=== PATIENT | female | born 1935 | race Caucasian/White ===

== ENCOUNTER 2020-01-03 13:48 | Inpatient (IN) ==
[2020-01-03] MEDS ORDERED: Acetaminophen 325 MG TABLET PO ONE (19:26)
[2020-01-03] MEDS: Simethicone 80 MG TAB.CHEW PO PRN (20:01)
[2020-01-03] MEDS: Erythromycin OPTH Oint LEFT EYE SCH (20:02)
[2020-01-04 07:36] LABS: Basophils % 0.5 %; Eosinophils # 0.1 K/mcL (0.0-0.6); Eosinophils % 1.1 %; Hematocrit 31.8 % (35.3-44.9); Hemoglobin 11.3 g/dL (11.5-15.4); Immature Granulocytes % 1.1 % (0-4); Lymphocytes # 1.4 K/mcL (0.6-4.6); Lymphocytes % 17.1 %; Mean Corpuscular HGB Conc 35.5 g/dL (31.6-35.5); Mean Corpuscular Hemoglobin 32.1 pg (28.0-33.3); Mean Corpuscular Volume 90.3 fL (83.0-100.0); Mean Platelet Volume 8.5 fL (9.4-12.4); Monocytes # 0.8 K/mcL (0.0-1.3); Monocytes % 10.4 %; Neutrophils # 5.5 K/mcL (1.6-8.9); Platelet Count 464 K/mcL (140-400); Red Blood Count 3.52 M/mcL (3.82-4.97); Red Cell Distribution Width 13.1 % (11.5-14.5); Segmented Neutrophils % 69.8 %; White Blood Count 7.9 K/mcL (4.3-11.1)
[2020-01-04 07:54] LABS: BUN/Creatinine Ratio 14 (6-26); Blood Urea Nitrogen 6 mg/dL (8-23); Carbon Dioxide 29 mEq/L (23-29); Chloride 93 mEq/L (98-107); Glucose 100 mg/dL (70-105); Osmolality,Calculated 262 (280-300); Potassium 3.3 mEq/L (3.5-5.1); Sodium 127 mEq/L (136-145); eGFR For African Americans > 60 (> 60); eGFR For Non-African Americans > 60 (> 60)
[2020-01-04] MEDS: Biotin 5,000 MCG SL SCH (08:02)
[2020-01-04] MEDS: Erythromycin OPTH Oint LEFT EYE SCH ×3 (08:02→20:09)
[2020-01-04] MEDS: B12 PO SCH (08:02)
[2020-01-04] MEDS: Multivit/Ca/Min/Fe/FA 1 TAB TABLET PO SCH (08:02)
[2020-01-04] MEDS: polyethylene glycoL 3350 17 GM POWD.PACK PO SCH (08:02)
[2020-01-04] MEDS: B6 PO SCH (08:02)
[2020-01-04] MEDS: LEVOMEFOLATE CALCIUM PO SCH (08:02)
[2020-01-04] MEDS: FERROUS SULFATE PO SCH (08:03)
[2020-01-04] MEDS: [UNRECOGNIZED DRUG - OTHER] PO SCH (08:03)
[2020-01-04] MEDS: VIT C PO SCH (08:03)
[2020-01-04] MEDS: Simethicone 80 MG TAB.CHEW PO PRN ×3 (08:05→20:08)
[2020-01-04] MEDS: Sennosides/Docusate Sodium TABLET PO PRN (11:52)
[2020-01-04] MEDS: Bisacodyl 10 MG RECTAL SUPPOSITORY RC PRN (11:52)
[2020-01-04] MEDS: Acetaminophen 325 MG TABLET PO PRN (17:06)
[2020-01-05] MEDS: Acetaminophen 325 MG TABLET PO PRN ×3 (00:55→20:30)
[2020-01-05 05:25] LABS: BUN/Creatinine Ratio 16 (6-26); Blood Urea Nitrogen 6 mg/dL (8-23); Calcium 8.2 mg/dL (8.6-10.3); Carbon Dioxide 27 mEq/L (23-29); Chloride 97 mEq/L (98-107); Glucose 92 mg/dL (70-105); Osmolality,Calculated 263 (280-300); Potassium 4.1 mEq/L (3.5-5.1); Sodium 128 mEq/L (136-145); eGFR For African Americans > 60 (> 60); eGFR For Non-African Americans > 60 (> 60)
[2020-01-05] MEDS: polyethylene glycoL 3350 17 GM POWD.PACK PO SCH (10:07)
[2020-01-05] MEDS: Simethicone 80 MG TAB.CHEW PO PRN (10:08)
[2020-01-05] MEDS: Multivit/Ca/Min/Fe/FA 1 TAB TABLET PO SCH (10:08)
[2020-01-05] MEDS: B6 PO SCH (10:09)
[2020-01-05] MEDS: Erythromycin OPTH Oint LEFT EYE SCH ×2 (10:09→10:26)
[2020-01-05] MEDS: LEVOMEFOLATE CALCIUM PO SCH (10:09)
[2020-01-05] MEDS: [UNRECOGNIZED DRUG - OTHER] PO SCH (10:09)
[2020-01-05] MEDS: FERROUS SULFATE PO SCH (10:09)
[2020-01-05] MEDS: VIT C PO SCH (10:09)
[2020-01-05] MEDS: Biotin 5,000 MCG SL SCH (10:09)
[2020-01-05] MEDS: B12 PO SCH (10:09)
[2020-01-06] MEDS: Acetaminophen 325 MG TABLET PO PRN ×2 (06:06→20:31)
[2020-01-06 07:46] LABS: BUN/Creatinine Ratio 17 (6-26); Blood Urea Nitrogen 8 mg/dL (8-23); Carbon Dioxide 26 mEq/L (23-29); Chloride 96 mEq/L (98-107); Glucose 118 mg/dL (70-105); Osmolality,Calculated 267 (280-300); Potassium 3.7 mEq/L (3.5-5.1); Sodium 129 mEq/L (136-145); eGFR For African Americans > 60 (> 60); eGFR For Non-African Americans > 60 (> 60)
[2020-01-06] MEDS: Aspirin Enteric Coated 81 MG Tablet PO SCH (08:25)
[2020-01-06] MEDS: Multivit/Ca/Min/Fe/FA 1 TAB TABLET PO SCH (08:25)
[2020-01-06] MEDS: polyethylene glycoL 3350 17 GM POWD.PACK PO SCH (08:26)
[2020-01-06] MEDS: VIT C PO SCH (08:27)
[2020-01-06] MEDS: FERROUS SULFATE PO SCH (08:27)
[2020-01-06] MEDS: Biotin 5,000 MCG SL SCH (08:27)
[2020-01-06] MEDS: B6 PO SCH (08:27)
[2020-01-06] MEDS: B12 PO SCH (08:27)
[2020-01-06] MEDS: [UNRECOGNIZED DRUG - OTHER] PO SCH (08:27)
[2020-01-06] MEDS: LEVOMEFOLATE CALCIUM PO SCH (08:27)
[2020-01-07] MEDS: Acetaminophen 325 MG TABLET PO PRN (05:54)
[2020-01-07 06:28] LABS: Hematocrit 34.3 % (35.3-44.9); Hemoglobin 11.9 g/dL (11.5-15.4); Mean Corpuscular HGB Conc 34.7 g/dL (31.6-35.5); Mean Corpuscular Hemoglobin 32.2 pg (28.0-33.3); Mean Corpuscular Volume 92.7 fL (83.0-100.0); Mean Platelet Volume 8.4 fL (9.4-12.4); Platelet Count 475 K/mcL (140-400); Red Cell Distribution Width 13.8 % (11.5-14.5); White Blood Count 10.3 K/mcL (4.3-11.1)
[2020-01-07 06:49] LABS: BUN/Creatinine Ratio 11 (6-26); Blood Urea Nitrogen 5 mg/dL (8-23); Calcium 8.4 mg/dL (8.6-10.3); Chloride 93 mEq/L (98-107); Glucose 95 mg/dL (70-105); Osmolality,Calculated 267 (280-300); Potassium 3.6 mEq/L (3.5-5.1); Sodium 130 mEq/L (136-145); eGFR For African Americans > 60 (> 60); eGFR For Non-African Americans > 60 (> 60)
[2020-01-07 07:19] LABS: Carbon Dioxide 29 mEq/L (23-29)
[2020-01-07] MEDS: B12 PO SCH (08:12)
[2020-01-07] MEDS: Biotin 5,000 MCG SL SCH (08:12)
[2020-01-07] MEDS: Aspirin Enteric Coated 81 MG Tablet PO SCH (08:12)
[2020-01-07] MEDS: B6 PO SCH (08:12)
[2020-01-07] MEDS: LEVOMEFOLATE CALCIUM PO SCH (08:12)
[2020-01-07] MEDS: Multivit/Ca/Min/Fe/FA 1 TAB TABLET PO SCH (08:12)
[2020-01-07] MEDS: polyethylene glycoL 3350 17 GM POWD.PACK PO SCH (08:13)
[2020-01-07] MEDS: [UNRECOGNIZED DRUG - OTHER] PO SCH (08:14)
[2020-01-07] MEDS: FERROUS SULFATE PO SCH (08:14)
[2020-01-07] MEDS: VIT C PO SCH (08:14)
[2020-01-08] MEDS: Acetaminophen 325 MG TABLET PO PRN ×2 (01:15→21:55)
[2020-01-08] MEDS: polyethylene glycoL 3350 17 GM POWD.PACK PO SCH (08:24)
[2020-01-08] MEDS: B6 PO SCH (08:31)
[2020-01-08] MEDS: Biotin 5,000 MCG SL SCH (08:31)
[2020-01-08] MEDS: Multivit/Ca/Min/Fe/FA 1 TAB TABLET PO SCH (08:31)
[2020-01-08] MEDS: LEVOMEFOLATE CALCIUM PO SCH (08:31)
[2020-01-08] MEDS: B12 PO SCH (08:31)
[2020-01-08] MEDS: Aspirin Enteric Coated 81 MG Tablet PO SCH (08:31)
[2020-01-08] MEDS: [UNRECOGNIZED DRUG - OTHER] PO SCH (08:33)
[2020-01-08] MEDS: FERROUS SULFATE PO SCH (08:33)
[2020-01-08] MEDS: VIT C PO SCH (08:33)
[2020-01-08 09:23] LABS: BUN/Creatinine Ratio 16 (6-26); Blood Urea Nitrogen 8 mg/dL (8-23); Calcium 8.6 mg/dL (8.6-10.3); Carbon Dioxide 28 mEq/L (23-29); Chloride 95 mEq/L (98-107); Glucose 126 mg/dL (70-105); Osmolality,Calculated 274 (280-300); Potassium 3.7 mEq/L (3.5-5.1); Sodium 132 mEq/L (136-145); eGFR For African Americans > 60 (> 60); eGFR For Non-African Americans > 60 (> 60)
[2020-01-08] MEDS ORDERED: 0.9 % Sodium Chloride 1,000 ML IV ONE (19:10)
[2020-01-08] MEDS ORDERED: 0.9 % Sodium Chloride 1,000 ML IVC SCH (19:15)
[2020-01-09] MEDS: Acetaminophen 325 MG TABLET PO PRN (06:53)
[2020-01-09] MEDS: B12 PO SCH (09:18)
[2020-01-09] MEDS: Multivit/Ca/Min/Fe/FA 1 TAB TABLET PO SCH (09:18)
[2020-01-09] MEDS: polyethylene glycoL 3350 17 GM POWD.PACK PO SCH (09:18)
[2020-01-09] MEDS: Aspirin Enteric Coated 81 MG Tablet PO SCH (09:18)
[2020-01-09] MEDS: LEVOMEFOLATE CALCIUM PO SCH (09:18)
[2020-01-09] MEDS: B6 PO SCH (09:18)
[2020-01-09] MEDS: Biotin 5,000 MCG SL SCH (09:18)
[2020-01-09] MEDS: FERROUS SULFATE PO SCH (09:19)
[2020-01-09] MEDS: [UNRECOGNIZED DRUG - OTHER] PO SCH (09:19)
[2020-01-09] MEDS: VIT C PO SCH (09:19)
[2020-01-10] MEDS: Acetaminophen 325 MG TABLET PO PRN ×3 (01:01→21:00)
[2020-01-10] MEDS: Simethicone 80 MG TAB.CHEW PO PRN (02:34)
[2020-01-10] MEDS: Bisacodyl 10 MG RECTAL SUPPOSITORY RC PRN (04:54)
[2020-01-10] MEDS: Multivit/Ca/Min/Fe/FA 1 TAB TABLET PO SCH (08:17)
[2020-01-10] MEDS: Aspirin Enteric Coated 81 MG Tablet PO SCH (08:17)
[2020-01-10] MEDS: Sennosides/Docusate Sodium TABLET PO PRN (08:17)
[2020-01-10] MEDS: Biotin 5,000 MCG SL SCH (08:18)
[2020-01-10] MEDS: polyethylene glycoL 3350 17 GM POWD.PACK PO SCH (08:18)
[2020-01-10] MEDS: [UNRECOGNIZED DRUG - OTHER] PO SCH (08:18)
[2020-01-10] MEDS: FERROUS SULFATE PO SCH (08:18)
[2020-01-10] MEDS: B12 PO SCH (08:18)
[2020-01-10] MEDS: VIT C PO SCH (08:18)
[2020-01-10] MEDS: LEVOMEFOLATE CALCIUM PO SCH (08:18)
[2020-01-10] MEDS: B6 PO SCH (08:18)
[2020-01-11] MEDS: Acetaminophen 325 MG TABLET PO PRN ×2 (02:42→21:45)
[2020-01-11] MEDS: Multivit/Ca/Min/Fe/FA 1 TAB TABLET PO SCH (08:16)
[2020-01-11] MEDS: amLODIPine 5 MG TABLET PO SCH (08:16)
[2020-01-11] MEDS: B6 PO SCH (08:17)
[2020-01-11] MEDS: VIT C PO SCH (08:17)
[2020-01-11] MEDS: Biotin 5,000 MCG SL SCH (08:17)
[2020-01-11] MEDS: polyethylene glycoL 3350 17 GM POWD.PACK PO SCH (08:17)
[2020-01-11] MEDS: B12 PO SCH (08:17)
[2020-01-11] MEDS: LEVOMEFOLATE CALCIUM PO SCH (08:17)
[2020-01-11] MEDS: [UNRECOGNIZED DRUG - OTHER] PO SCH (08:17)
[2020-01-11] MEDS: FERROUS SULFATE PO SCH (08:17)
[2020-01-11] MEDS: Sennosides/Docusate Sodium TABLET PO PRN (08:17)
[2020-01-11] MEDS: Aspirin Enteric Coated 81 MG Tablet PO SCH (08:17)
[2020-01-11 08:40] LABS: Hematocrit 34.4 % (35.3-44.9); Hemoglobin 11.7 g/dL (11.5-15.4); Mean Corpuscular Hemoglobin 32.2 pg (28.0-33.3); Mean Corpuscular Volume 94.8 fL (83.0-100.0); Mean Platelet Volume 8.8 fL (9.4-12.4); Platelet Count 466 K/mcL (140-400); Red Blood Count 3.63 M/mcL (3.82-4.97); Red Cell Distribution Width 14.1 % (11.5-14.5); White Blood Count 7.8 K/mcL (4.3-11.1)
[2020-01-11 08:56] LABS: BUN/Creatinine Ratio 19 (6-26); Blood Urea Nitrogen 9 mg/dL (8-23); Carbon Dioxide 31 mEq/L (23-29); Chloride 95 mEq/L (98-107); Glucose 93 mg/dL (70-105); Osmolality,Calculated 272 (280-300); Potassium 3.9 mEq/L (3.5-5.1); Sodium 132 mEq/L (136-145); eGFR For African Americans > 60 (> 60); eGFR For Non-African Americans > 60 (> 60)
[2020-01-12] MEDS: polyethylene glycoL 3350 17 GM POWD.PACK PO SCH (08:38)
[2020-01-12] MEDS: Multivit/Ca/Min/Fe/FA 1 TAB TABLET PO SCH (08:38)
[2020-01-12] MEDS: amLODIPine 5 MG TABLET PO SCH (08:38)
[2020-01-12] MEDS: Aspirin Enteric Coated 81 MG Tablet PO SCH (08:38)
[2020-01-12] MEDS: LEVOMEFOLATE CALCIUM PO SCH (08:39)
[2020-01-12] MEDS: [UNRECOGNIZED DRUG - OTHER] PO SCH (08:39)
[2020-01-12] MEDS: FERROUS SULFATE PO SCH (08:39)
[2020-01-12] MEDS: Biotin 5,000 MCG SL SCH (08:39)
[2020-01-12] MEDS: B6 PO SCH (08:39)
[2020-01-12] MEDS: B12 PO SCH (08:39)
[2020-01-12] MEDS: VIT C PO SCH (08:39)
[2020-01-12] MEDS: Acetaminophen 325 MG TABLET PO PRN (22:03)
[2020-01-13] MEDS: Acetaminophen 325 MG TABLET PO PRN ×3 (08:19→22:28)
[2020-01-13] MEDS: B6 PO SCH (08:20)
[2020-01-13] MEDS: amLODIPine 5 MG TABLET PO SCH (08:20)
[2020-01-13] MEDS: Aspirin Enteric Coated 81 MG Tablet PO SCH (08:20)
[2020-01-13] MEDS: LEVOMEFOLATE CALCIUM PO SCH (08:20)
[2020-01-13] MEDS: Multivit/Ca/Min/Fe/FA 1 TAB TABLET PO SCH (08:20)
[2020-01-13] MEDS: B12 PO SCH (08:20)
[2020-01-13] MEDS: Biotin 5,000 MCG SL SCH (08:20)
[2020-01-13] MEDS: polyethylene glycoL 3350 17 GM POWD.PACK PO SCH (08:21)
[2020-01-13] MEDS: FERROUS SULFATE PO SCH (08:21)
[2020-01-13] MEDS: VIT C PO SCH (08:21)
[2020-01-13] MEDS: [UNRECOGNIZED DRUG - OTHER] PO SCH (08:21)
[2020-01-14 07:15] VITALS: BP 131/64
[2020-01-14] MEDS: amLODIPine 5 MG TABLET PO SCH (09:00)
[2020-01-14] MEDS: Simethicone 80 MG TAB.CHEW PO PRN (09:00)
[2020-01-14] MEDS: polyethylene glycoL 3350 17 GM POWD.PACK PO SCH (09:00)
[2020-01-14] MEDS: Multivit/Ca/Min/Fe/FA 1 TAB TABLET PO SCH (09:00)
[2020-01-14] MEDS: Aspirin Enteric Coated 81 MG Tablet PO SCH (09:00)
[2020-01-14] MEDS: LEVOMEFOLATE CALCIUM PO SCH (09:01)
[2020-01-14] MEDS: Biotin 5,000 MCG SL SCH (09:01)
[2020-01-14] MEDS: B12 PO SCH (09:01)
[2020-01-14] MEDS: B6 PO SCH (09:01)
[2020-01-14] MEDS: [UNRECOGNIZED DRUG - OTHER] PO SCH (09:04)
[2020-01-14] MEDS: VIT C PO SCH (09:04)
[2020-01-14] MEDS: FERROUS SULFATE PO SCH (09:04)
[2020-01-14 09:13] LABS: BUN/Creatinine Ratio 28 (6-26); Blood Urea Nitrogen 13 mg/dL (8-23); Calcium 9.2 mg/dL (8.6-10.3); Carbon Dioxide 30 mEq/L (23-29); Chloride 94 mEq/L (98-107); Glucose 111 mg/dL (70-105); Osmolality,Calculated 273 (280-300); Potassium 3.6 mEq/L (3.5-5.1); Sodium 131 mEq/L (136-145); eGFR For African Americans > 60 (> 60); eGFR For Non-African Americans > 60 (> 60)
[2020-01-14] MEDS: Acetaminophen 325 MG TABLET PO PRN (11:15)
== END 2020-01-14 15:10 | disposition home health service (06) | DRG 945 ==
LOC: INPPIK 17:10
PROVIDERS: ADMIT Family Medicine; ATTEND Family Medicine